=== PATIENT | female | born 1970 | race Hispanic/Latino ===

== ENCOUNTER 2017-04-25 05:42 | Day surgery (SDC) | payer BC, OTHER ==
[2017-04-25] MEDS ORDERED: NACL BACTERIOSTATIC INFILTRATI ONE (06:45)
[2017-04-25 07:10] LABS: Hematocrit 38.5 % (30.3-42.9); Hemoglobin 13.1 gm/dl (10.1-14.3)
--- NOTE | 2017-04-25 07:26 | Anesthesia Day of Surgery ---
Anesthesia Day of Surgery - Day of Surgery Patient Examined: Yes Patient H&P Reviewed: Yes Patient is NPO: Yes
--- NOTE | 2017-04-25 07:26 | Anesthesia Consultation ---
Anesthesia Consult and Med Hx Date of service: 04/25/17 - Airway Anesthetic Teeth Evaluation: Good ROM Head & Neck: Adequate Mental/Hyoid Distance: Adequate Mallampati Class: Class I Intubation Access Assessment: Good - Pulmonary Exam CTA: Yes - Cardiac Exam Cardiac Exam: RRR - Pre-Operative Health Status ASA Pre-Surgery Classification: ASA3 Proposed Anesthetic Plan: General - Pulmonary Hx Smoking: No Hx Sleep Apnea: No (ANURADHA PRE SCREEN HIGH RISK) - Cardiovascular System Hx Hypertension: Yes (X 6 MONTHS) - Central Nervous System Hx Psychiatric Problems: Yes (depression/anxiety) - Endocrine Hx Insulin Dependent Diabetes: Yes (no meds, doesnt check sugar) Hx Hypothyroidism: Yes - Hematic Hx Anemia: Yes (HAVING WORK UP NOW WITH PCP) - Other Systems Hx Alcohol Use: No Hx Substance Use: No Hx Cancer: No Hx Obesity: Yes (BMI 36.9) - Additional Comments Anesthesia Medical History Comments: high cholest.
[2017-04-25] MEDS ORDERED: ZOFRAN ONE (07:50)
[2017-04-25] MEDS ORDERED: DIPRIVAN 10 MG/ML IV ONE (07:50)
[2017-04-25] MEDS ORDERED: REGLAN ONE (07:50)
[2017-04-25] MEDS ORDERED: SUBLIMAZE ONE (07:50)
[2017-04-25] MEDS ORDERED: XYLOCAINE MPF 2% ONE (07:50)
[2017-04-25] MEDS ORDERED: NACL 0.9% 1000 ML 1,000 ML IV SCH (08:00)
[2017-04-25] MEDS ORDERED: VERSED IV NR (08:00)
[2017-04-25] MEDS ORDERED: TRANSDERM-SCOP TD NR (08:00)
[2017-04-25] MEDS ORDERED: PEPCID IV NR (08:00)
[2017-04-25] MEDS ORDERED: ROBINUL ONE (08:13)
[2017-04-25] MEDS ORDERED: LACTATED RINGERS 1,000 ML ONE (08:45)
--- NOTE | 2017-04-25 08:58 | Short Stay Summary ---
Short Stay Documentation Date of service: 04/25/17 - History H&P: obtained from office - Allergies and Medications Current Medications: Allergies Sulfa (Sulfonamide Antibiotics) Allergy (Verified 10/21/13 14:05) Rash Home Medications Medication Instructions Recorded Confirmed Last Taken Type Aspirin [Lo-Dose Aspirin EC] 81 mg PO DAILY 04/17/17 04/25/17 04/18/17 History HYDROcodone/ACETAMINOPHEN [[place] 1 each PO PRN PRN 04/17/17 04/25/17 04/24/17 History 5-325 Tablet] Nebivolol HCl [Bystolic] 5 mg PO DAILY 04/17/17 04/25/17 04/24/17 History Venlafaxine [Effexor] 75 mg PO DAILY 04/17/17 04/25/17 04/24/17 History amLODIPine [Norvasc] 5 mg PO DAILY 04/17/17 04/25/17 04/24/17 History metFORMIN [Glucophage] 500 mg PO QDAY 04/17/17 04/25/17 04/24/17 History Active Medications Cefazolin Sodium (Ancef/Sterile Water 2 Gm/20 Ml) 2 gm IV PREOP NR Stop: 04/25/17 23:59 Famotidine (Pepcid) 20 mg IV PREOP NR Stop: 04/25/17 23:59 Last Admin: 04/25/17 08:55 Dose: 20 mg Sodium Chloride (Nacl 0.9% 1000 Ml) 1,000 mls @ 75 mls/hr IV DIRECT YAYO Last Admin: 04/25/17 08:56 Dose: 75 mls/hr Midazolam HCl (Versed) 2 mg IV PREOP NR Stop: 04/25/17 23:59 Last Admin: 04/25/17 08:55 Dose: 2 mg Scopolamine (Transderm-Scop) 1 each TD PREOP NR Stop: 04/25/17 23:59 - Brief post op/procedure progress note Date of procedure: 04/25/17 Pre-op diagnosis: rt renal stones Post-op diagnosis: same Procedure: rt eswl Anesthesia: MORAA Surgeon: MARIUSZ GORDON Estimated blood loss: none Condition: stable - Hospital course Hospital course: norc & post op info on chart - Disposition Condition at discharge: Undetermined
[2017-04-25] MEDS ORDERED: ANCEF/STERILE WATER 2 GM/20 ML IV NR (09:00)
--- NOTE | 2017-04-25 09:16 | Operative Report ---
PREOPERATIVE DIAGNOSIS: Right renal calculi. POSTOPERATIVE DIAGNOSIS: Right renal calculi. PROCEDURE: Right extracorporal shockwave lithotripsy (staged procedure). SURGEON: Shaun Feldman MD ANESTHESIA: General. ANESTHESIOLOGIST: Em Clinton MD ESTIMATED BLOOD LOSS: Minimal. FLUIDS: Crystalloid. COMPLICATIONS: No complications. INDICATIONS: This patient is a 46-year-old female with long history of stones, had lithotripsy in the past. She has persistent right renal calculi and presents now for intervention. DESCRIPTION OF PROCEDURE: The patient was taken to the operative suite, placed in a supine position. After adequate general anesthesia, she had a 6 mm stone in the renal pelvis and some small satellite peripheral stones. Extracorporal shock wave lithotripsy was administered in maximum kV of 5 and 3000 shocks. Renal pause after 200 shocks was performed. Some fragmentation could be appreciated. The patient tolerated the procedure well. She was extubated and taken to the recovery room. She will go home on [place], strain her urine, and follow up in the office. JOB# [id number] C/NTS
[2017-04-25] MEDS ORDERED: DILAUDID IV PRN (10:30)
[2017-04-25 12:22] VITALS: BP 136/74
== END 2017-04-25 11:52 | disposition home or self-care (01) ==
LOC: OR 05:42
PROVIDERS: ATTEND Urology
DX: N20.2 Calculus of kidney with calculus of ureter (principal); E78.00 Pure hypercholesterolemia, unspecified; E11.9 Type 2 diabetes mellitus without complications; E03.9 Hypothyroidism, unspecified; F41.9 Anxiety disorder, unspecified; F32.9 Major depressive disorder, single episode, unspecified; E66.9 Obesity, unspecified; Z68.36 Body mass index [BMI] 36.0-36.9, adult; Z79.82 Long term (current) use of aspirin; Z79.84 Long term (current) use of oral hypoglycemic drugs; Z79.899 Other long term (current) drug therapy; Z90.49 Acquired absence of other specified parts of digestive tract; Z88.2 Allergy status to sulfonamides; Z98.890 Other specified postprocedural states
CPT/HCPCS: 36415; 50590; 81025; 85014; 85018; J1170; J2250; J2405; J2704; J2765; J3010; J7030; J7120

== ENCOUNTER 2017-12-26 09:18 | Day surgery (SDC) | payer BC ==
[~2017-12-26 09:18] MED LIST: ANCEF/STERILE WATER 2 GM/20 ML IV NR
[2017-12-26] MEDS ORDERED: DILAUDID ONE (10:13)
[2017-12-26] MEDS ORDERED: DIPRIVAN 10 MG/ML IV ONE (10:13)
[2017-12-26] MEDS ORDERED: XYLOCAINE MPF 2% ONE (10:13)
[2017-12-26] MEDS ORDERED: NACL BACTERIOSTATIC INFILTRATI ONE (10:15)
[2017-12-26] MEDS ORDERED: TORADOL IV PRN (10:28)
[2017-12-26] MEDS ORDERED: ZOFRAN IV PRN (10:28)
--- NOTE | 2017-12-26 10:29 | Anesthesia Day of Surgery ---
Anesthesia Day of Surgery - Day of Surgery Patient Examined: Yes Patient H&P Reviewed: Yes Patient is NPO: Yes
--- NOTE | 2017-12-26 10:29 | Anesthesia Consultation ---
Anesthesia Consult and Med Hx Date of service: 12/26/17 - Airway Anesthetic Teeth Evaluation: Good ROM Head & Neck: Adequate Mental/Hyoid Distance: Adequate Mallampati Class: Class III Intubation Access Assessment: Possibly Difficult - Pulmonary Exam CTA: Yes - Cardiac Exam Cardiac Exam: RRR - Pre-Operative Health Status ASA Pre-Surgery Classification: ASA3 Proposed Anesthetic Plan: General (GA with LMA ok, HTN, DM, OBestity) - Pulmonary Hx Smoking: No Hx Sleep Apnea: No (ANURADHA PRE SCREEN HIGH RISK) - Cardiovascular System Hx Hypertension: Yes (X 1 YR) - Central Nervous System Hx Back Pain: Yes - Endocrine Hx Insulin Dependent Diabetes: Yes (no meds, doesnt check sugar) - Hematic Hx Anemia: Yes - Other Systems Hx Alcohol Use: No Hx Substance Use: No Hx Cancer: No Hx Obesity: Yes
[2017-12-26 10:42] LABS: Hematocrit 39.9 % (30.3-42.9); Hemoglobin 13.4 gm/dl (10.1-14.3)
[2017-12-26] MEDS ORDERED: TRANSDERM-SCOP TD ONE (10:59)
[2017-12-26] MEDS ORDERED: NACL 0.9% 1000 ML 1,000 ML IV SCH (11:00)
[2017-12-26] MEDS ORDERED: PEPCID IV NR (11:00)
[2017-12-26] MEDS ORDERED: VERSED IV NR (11:00)
[2017-12-26] MEDS ORDERED: ROBINUL ONE (11:30)
[2017-12-26] MEDS: DILAUDID IV PRN ×2 (12:25→12:35)
--- NOTE | 2017-12-26 13:11 | Short Stay Summary ---
Short Stay Documentation Date of service: 12/26/17 - History H&P: obtained from office - Allergies and Medications Current Medications: Allergies Sulfa (Sulfonamide Antibiotics) Allergy (Verified 10/21/13 14:05) Rash Home Medications Medication Instructions Recorded Confirmed Last Taken Type Aspirin [Lo-Dose Aspirin EC] 81 mg PO DAILY 04/17/17 12/26/17 1 Week Ago History ~12/19/17 HYDROcodone/ACETAMINOPHEN [[place] 1 each PO PRN PRN 04/17/17 12/02/17 12/25/17 History 5-325 Tablet] Nebivolol HCl [Bystolic] 10 mg PO DAILY 04/17/17 12/02/17 12/25/17 History Venlafaxine [Effexor] 75 mg PO DAILY 04/17/17 12/26/17 2 Weeks Ago History ~12/12/17 metFORMIN [Glucophage] 850 mg PO BID 04/17/17 12/02/17 12/25/17 History Amlodipine-Benazepril 5-20 mg 1 tab PO DAILY 12/02/17 12/02/17 12/25/17 History AtorvaSTATin [Lipitor] 20 mg PO QHS 12/02/17 12/02/17 12/25/17 History Potassium Citrate [Potassium 10 meq PO BID 12/02/17 12/02/17 12/25/17 History Citrate ER] Tamsulosin [Flomax] 0.4 mg PO DAILY 12/02/17 12/02/17 12/25/17 History busPIRone [Buspar] 10 mg PO BID 12/02/17 12/02/17 12/25/17 History Cefuroxime [Ceftin] 500 mg PO Q12H 5 Days #20 tablet 12/26/17 Unknown Rx Oxycodone HCl/Acetaminophen 0.5 - 1 each PO Q6HR PRN #30 tablet 12/26/17 Unknown Rx [Percocet 10-325 mg] Active Medications Cefazolin Sodium (Ancef/Sterile Water 2 Gm/20 Ml) 2 gm IV PREOP NR Stop: 12/26/17 23:59 Hydromorphone HCl (Dilaudid) 0.5 mg IV Q10MIN PRN PRN Reason: Pain , Severe (7-10) Stop: 12/26/17 18:00 Last Admin: 12/26/17 12:35 Dose: 0.5 mg Sodium Chloride (Nacl 0.9% 1000 Ml) 1,000 mls @ 100 mls/hr IV DIRECT YAYO Last Admin: 12/26/17 11:05 Dose: 100 mls/hr Midazolam HCl (Versed) 2 mg IV PREOP NR Stop: 12/26/17 23:59 Last Admin: 12/26/17 11:05 Dose: 2 mg Ondansetron HCl (Zofran) 4 mg IV ONCE PRN PRN Reason: Nausea And Vomiting - Brief post op/procedure progress note Date of procedure: 12/26/17 Pre-op diagnosis: right upj 10mm Post-op diagnosis: same Procedure: right eswl Findings: good vis frag Surgeon: ADONIS BEEBE Estimated blood loss: none Pathology: none Condition: stable - Hospital course Hospital course: or pacu home - Disposition Condition at discharge: Good Disposition: DC-01 TO HOME OR SELFCARE Short Stay Discharge Plan Activity: advance as tolerated Diet: advance as tolerated Additional Instructions: REMOVE SCOPOLAMINE PATCH FROM BEHIND EAR BY 12/29/17. FOLD PATCH TOGETHER AND DISCARD IN TRASH. WASH HAND AFTER REMOVING SCOPOLAMINE PATCH. Follow up with: ADONIS BEEBE MD [Staff Physician] - 7 Days Prescriptions: Cefuroxime [Ceftin] 500 mg PO Q12H 5 Days #20 tablet Oxycodone HCl/Acetaminophen [Percocet 10-325 mg] 0.5 - 1 each PO Q6HR PRN #30 tablet PRN Reason: Pain
[2017-12-26 16:37] VITALS: BP 121/49
--- NOTE | 2018-01-05 18:51 | Operative Report ---
PREOPERATIVE DIAGNOSIS: Right ureteropelvic junction 10 mm stone. POSTOPERATIVE DIAGNOSIS: Right ureteropelvic junction 10 mm stone. PROCEDURE: Right ureteropelvic junction and renal ESWL. FINDINGS: Good visualization and fragmentation. SURGEON: Ernst Roa MD. ESTIMATED BLOOD LOSS: None. COMPLICATIONS: None. CONDITION: Stable. IMPLANTS: None. PATHOLOGY: None. CLINICAL INDICATIONS: Counseled by Urology preoperatively RCBA, antibiotics, SCD. DESCRIPTION OF PROCEDURE: The patient was transferred to the OR suite in supine position, anesthesia. Biplanar fluoroscopy was used to target the right stone with an F2. There was a total of 2500 shocks were delivered at a maximum of 5.0 kilovolts. Intermittent repositioning done as necessary. At the end of the procedure, there was good fragmentation of the stone. JOB# [id number] ATS/NTS
== END 2017-12-26 09:19 | disposition home or self-care (01) ==
LOC: OR 09:18
PROVIDERS: ATTEND Urology
DX: N20.1 Calculus of ureter (principal); E78.00 Pure hypercholesterolemia, unspecified; F41.9 Anxiety disorder, unspecified; F32.9 Major depressive disorder, single episode, unspecified; I10 Essential (primary) hypertension; E11.9 Type 2 diabetes mellitus without complications; K21.9 Gastro-esophageal reflux disease without esophagitis; E66.9 Obesity, unspecified; Z68.37 Body mass index [BMI] 37.0-37.9, adult; Z79.82 Long term (current) use of aspirin; Z79.84 Long term (current) use of oral hypoglycemic drugs; Z88.2 Allergy status to sulfonamides; Z98.51 Tubal ligation status; Z90.49 Acquired absence of other specified parts of digestive tract; Z98.890 Other specified postprocedural states
CPT/HCPCS: 36415; 50590; 81025; 82962; 84132; 85014; 85018; J0690; J1170; J1885; J2250; J2405; J2704; J7030

== ENCOUNTER 2018-09-11 05:52 | Day surgery (SDC) | payer BC ==
[2018-09-11] MEDS ORDERED: NACL BACTERIOSTATIC INFILTRATI ONE (06:44)
[2018-09-11] MEDS ORDERED: LACTATED RINGERS 1,000 ML IV SCH (07:00)
[2018-09-11] MEDS ORDERED: TRANSDERM-SCOP TD ONE (07:21)
--- NOTE | 2018-09-11 07:40 | Anesthesia Consultation ---
Anesthesia Consult and Med Hx Date of service: 09/11/18 - Airway Anesthetic Teeth Evaluation: Good ROM Head & Neck: Adequate Mental/Hyoid Distance: Adequate Mallampati Class: Class III Intubation Access Assessment: Probably Good - Pulmonary Exam CTA: Yes - Cardiac Exam Cardiac Exam: RRR - Pre-Operative Health Status ASA Pre-Surgery Classification: ASA3 Proposed Anesthetic Plan: General - Pulmonary Hx Smoking: No Hx Respiratory Symptoms: No Hx Sleep Apnea: No (ANURADHA PRE SCREEN HIGH RISK) - Cardiovascular System Hx Hypertension: Yes (X 1 YR; took amlodipine this morning ) Hx Coronary Artery Disease: No Hx Cardia Arrhythmia: No Hx Peripheral Vascular Disease: No - Central Nervous System Hx Neuromuscular Disorder: No Hx Back Pain: Yes Hx Psychiatric Problems: No - Gastrointestinal Hx Gastroesophageal Reflux Disease: No - Endocrine Hx Renal Disease: No (kidney stones) Hx Insulin Dependent Diabetes: Yes (no meds, doesnt check sugar; FBS 179 g/dl this morning) Hx Thyroid Disease: No - Hematic Hx Anemia: Yes (NOT RECENT) - Other Systems Hx Alcohol Use: No Hx Substance Use: No Hx Cancer: No Hx Obesity: Yes (BMI 48.8) - Additional Comments Anesthesia Medical History Comments: Reports nausea this morning, no vomiting; ordered zofran and scopolamine patch; no GAC, no FHAC
--- NOTE | 2018-09-11 07:41 | Anesthesia Day of Surgery ---
Anesthesia Day of Surgery - Day of Surgery Patient Examined: Yes Patient H&P Reviewed: Yes Patient is NPO: Yes Beta Blockers: No (n/a ) Cardiac Clearance: No (n/a) Pulmonary Clearance: No (n/a)
[2018-09-11] MEDS ORDERED: SUBLIMAZE IV PRN (08:17)
[2018-09-11] MEDS ORDERED: NARCAN 0.4 MG/1 ML IV PRN (08:17)
[2018-09-11] MEDS ORDERED: DEMEROL IV PRN (08:17)
[2018-09-11] MEDS ORDERED: ZOFRAN IV PRN (08:17)
[2018-09-11] MEDS ORDERED: DILAUDID IV PRN (08:17)
[2018-09-11] MEDS ORDERED: DILAUDID ONE (08:18)
[2018-09-11] MEDS ORDERED: XYLOCAINE MPF 2% ONE (08:18)
[2018-09-11] MEDS ORDERED: DIPRIVAN 10 MG/ML IV ONE (08:18)
[2018-09-11] MEDS ORDERED: TORADOL ONE (09:37)
[2018-09-11] MEDS ORDERED: ZOFRAN ONE (09:37)
--- NOTE | 2018-09-11 09:40 | Short Stay Summary ---
Short Stay Documentation Date of service: 09/11/18 - History H&P: obtained from office - Allergies and Medications Current Medications: Allergies Sulfa (Sulfonamide Antibiotics) Allergy (Verified 10/21/13 14:05) Rash Home Medications Medication Instructions Recorded Confirmed Last Taken Type Aspirin [Lo-Dose Aspirin EC] 81 mg PO DAILY 04/17/17 09/01/18 1 Month Ago History ~04/22/18 HYDROcodone/ACETAMINOPHEN [[place] 1 each PO PRN PRN 04/17/17 09/01/18 05/21/18 History 5-325 Tablet] Nebivolol HCl [Bystolic] 10 mg PO DAILY 04/17/17 09/01/18 05/21/18 History Venlafaxine [Effexor] 75 mg PO DAILY 04/17/17 09/01/18 05/21/18 History metFORMIN [Glucophage] 850 mg PO BID 04/17/17 09/01/18 05/21/18 History Amlodipine-Benazepril 5-20 mg 1 tab PO DAILY 12/02/17 09/01/18 05/21/18 History AtorvaSTATin [Lipitor] 20 mg PO QHS 12/02/17 09/01/18 05/21/18 History Potassium Citrate [Potassium 10 meq PO BID 12/02/17 09/01/18 05/21/18 History Citrate ER] busPIRone [Buspar] 10 mg PO BID 12/02/17 09/01/18 05/21/18 History Nitrofurantoin [place]/M-Cryst 100 mg PO Q12HR #14 capsule 05/22/18 09/01/18 Unknown Rx [Macrobid CAP] Active Medications Cefazolin Sodium (Ancef/Sterile Water 2 Gm/20 Ml) 2 gm IV PREOP NR Stop: 09/11/18 23:59 Fentanyl (Sublimaze) 50 mcg IV Q5MIN PRN PRN Reason: Pain , Severe (7-10) Stop: 09/11/18 20:00 Hydromorphone HCl (Dilaudid) 0.5 mg IV Q10MIN PRN PRN Reason: Pain , Severe (7-10) Stop: 09/11/18 20:00 Lactated Ringer's (Lactated Ringers) 1,000 mls @ 100 mls/hr IV DIRECT YAYO Last Admin: 09/11/18 07:00 Dose: 100 mls/hr Documented by: Meperidine HCl (Demerol) 25 mg IV ONCE PRN PRN Reason: Shivering Stop: 09/11/18 13:00 Naloxone HCl (Narcan 0.4 Mg/1 Ml) 0.1 mg IV Q2MIN PRN PRN Reason: Res Rate </= 8 or 02 SAT < 92% Ondansetron HCl (Zofran) 4 mg IV ONCE PRN PRN Reason: Nausea And Vomiting - Brief post op/procedure progress note Date of procedure: 09/11/18 Pre-op diagnosis: rt kidney stones Post-op diagnosis: same Procedure: ESWL Anesthesia: GETA Surgeon: MARIUSZ GORDON Estimated blood loss: minimal Condition: stable - Hospital course Hospital course: cynthia greco, post op info on chart - Disposition Condition at discharge: Stable Disposition: DC-01 TO HOME OR SELFCARE Short Stay Discharge Plan Follow up with: LEANN PEÑA FNP-C [Primary Care Provider] - 7 Days
[2018-09-11] MEDS ORDERED: NORCO 5/325 PO PRN (10:33)
--- NOTE | 2018-09-11 10:41 | Post Anesthesia Evaluation ---
- Post Anesthesia Evaluation Patient Participated: Yes Airway Patent: Yes Stable Respiratory Function: Yes Nausea/Vomiting: No Temp > 96.8F: Yes Pain Manageable: Yes Adequeate Hydration: Yes Anesthesia Complications: No
--- NOTE | 2018-09-11 11:19 | Operative Report ---
PREOPERATIVE DIAGNOSIS: Bilateral renal calculi. POSTOPERATIVE DIAGNOSIS: Bilateral renal calculi. PROCEDURE: Right extracorporal shock wave lithotripsy. SURGEON: Shaun Feldman MD ANESTHESIA: General. ESTIMATED BLOOD LOSS: Minimal. FLUIDS: Crystalloid. COMPLICATIONS: No complications. INDICATIONS: This 48-year-old female known to our service with long history of kidney stones. She has bilateral stones with right-sided pain. We discussed options. She agreed to proceed with surgical intervention. DESCRIPTION OF PROCEDURE: The patient was taken to the operative suite, placed in a supine position, after adequate general anesthesia. She has two stones in the mid upper pole, 5 mm each. Extracorporal shock wave lithotripsy was administered to both stones, kV of 7, 1500 shocks to each stone with a renal pause of 5 minutes after 200 shocks. Adequate fragmentation could be appreciated. The patient tolerated the procedure well. She was extubated and taken to recovery room in stable condition. She will go home on [place] and follow up in the office. JOB# [id number] LORENZA/EMANUEL
[2018-09-11 11:47] VITALS: BP 114/61
== END 2018-09-11 11:20 | disposition home or self-care (01) ==
LOC: OR 05:52
PROVIDERS: ATTEND Urology
DX: N20.0 Calculus of kidney (principal); E78.00 Pure hypercholesterolemia, unspecified; I10 Essential (primary) hypertension; E11.9 Type 2 diabetes mellitus without complications; F32.9 Major depressive disorder, single episode, unspecified; F41.9 Anxiety disorder, unspecified; E66.9 Obesity, unspecified; Z68.42 Body mass index [BMI] 45.0-49.9, adult; Z88.2 Allergy status to sulfonamides; Z79.82 Long term (current) use of aspirin; Z79.899 Other long term (current) drug therapy; Z79.84 Long term (current) use of oral hypoglycemic drugs; Z90.49 Acquired absence of other specified parts of digestive tract; Z98.51 Tubal ligation status; Z98.890 Other specified postprocedural states; Z87.440 Personal history of urinary (tract) infections; Z86.2 Personal history of diseases of the blood and blood-forming organs and certain disorders involving the immune mechanism
CPT/HCPCS: 50590; 81025; 82962; J0690; J1170; J1885; J2175; J2405; J2704; J7120

== ENCOUNTER 2018-11-06 06:04 | Day surgery (SDC) | payer BC ==
[~2018-11-06 06:04] MED LIST changes: +LACTATED RINGERS 1,000 ML IV SCH
[2018-11-06] MEDS ORDERED: NACL BACTERIOSTATIC INFILTRATI ONE (06:32)
[2018-11-06] MEDS ORDERED: TRANSDERM-SCOP TD ONE (06:47)
[2018-11-06] MEDS ORDERED: ZOFRAN ONE ×3 (06:47→13:13)
[2018-11-06] MEDS ORDERED: TRANSDERM-SCOP TD NR (07:00)
[2018-11-06] MEDS ORDERED: ZOFRAN IV NR (07:00)
[2018-11-06 07:32] VITALS: BP 136/72
[2018-11-06] MEDS ORDERED: DECADRON ONE (07:37)
[2018-11-06] MEDS ORDERED: SUBLIMAZE IV PRN (07:37)
[2018-11-06] MEDS ORDERED: DIPRIVAN 10 MG/ML IV ONE (07:37)
[2018-11-06] MEDS ORDERED: SUBLIMAZE ONE (07:37)
--- NOTE | 2018-11-06 07:37 | Anesthesia Day of Surgery ---
Anesthesia Day of Surgery - Day of Surgery Patient Examined: Yes Patient H&P Reviewed: Yes Patient is NPO: Yes
--- NOTE | 2018-11-06 07:37 | Anesthesia Consultation ---
Anesthesia Consult and Med Hx Date of service: 11/06/18 - Airway Anesthetic Teeth Evaluation: Good ROM Head & Neck: Adequate Mental/Hyoid Distance: Adequate Mallampati Class: Class II Intubation Access Assessment: Probably Good (previous easy LMA 3 or 4) - Pulmonary Exam CTA: Yes - Cardiac Exam Cardiac Exam: RRR - Pre-Operative Health Status ASA Pre-Surgery Classification: ASA3 Proposed Anesthetic Plan: General - Pulmonary Hx Smoking: No Hx Respiratory Symptoms: No Hx Sleep Apnea: No (ANURADHA PRE SCREEN HIGH RISK) - Cardiovascular System Hx Hypertension: Yes (last dose antihypertensives 2 days ago) Hx Heart Attack/AMI: No Hx Cardia Arrhythmia: No - Central Nervous System CVA: No Hx Back Pain: Yes Hx Psychiatric Problems: No - Gastrointestinal Hx Gastroesophageal Reflux Disease: Yes (controlled) - Endocrine Hx Renal Disease: No Hx Liver Disease: No Hx Non-Insulin Dependent Diabetes: Yes Hx Thyroid Disease: No - Other Systems Hx Alcohol Use: No Hx Substance Use: No Hx Cancer: No Hx Obesity: Yes (BMI 48.8)
[2018-11-06] MEDS ORDERED: NEO SYNEPHRINE ONE (13:13)
== END 2018-11-06 06:05 | disposition home or self-care (01) ==
LOC: OR 06:04
PROVIDERS: ATTEND Urology
DX: N20.0 Calculus of kidney (principal); E78.00 Pure hypercholesterolemia, unspecified; I10 Essential (primary) hypertension; E66.9 Obesity, unspecified; K21.9 Gastro-esophageal reflux disease without esophagitis; E11.9 Type 2 diabetes mellitus without complications; F32.9 Major depressive disorder, single episode, unspecified; F41.9 Anxiety disorder, unspecified; Z53.8 Procedure and treatment not carried out for other reasons; Z79.899 Other long term (current) drug therapy; Z79.84 Long term (current) use of oral hypoglycemic drugs; Z79.82 Long term (current) use of aspirin; Z88.2 Allergy status to sulfonamides; Z90.49 Acquired absence of other specified parts of digestive tract; Z68.42 Body mass index [BMI] 45.0-49.9, adult; Z98.51 Tubal ligation status; Z87.440 Personal history of urinary (tract) infections; Z98.890 Other specified postprocedural states; Z86.2 Personal history of diseases of the blood and blood-forming organs and certain disorders involving the immune mechanism
CPT/HCPCS: 82803; 82962; J1100; J2405; J3010; J7120; J0690; J2370; J2704

== ENCOUNTER 2018-12-04 06:06 | Day surgery (SDC) | payer BC ==
[~2018-12-04 06:06] MED LIST changes: -LACTATED RINGERS 1,000 ML IV SCH
[2018-12-04] MEDS ORDERED: NACL BACTERIOSTATIC INFILTRATI ONE (06:36)
[2018-12-04] MEDS ORDERED: VERSED IV ONE (06:52)
[2018-12-04] MEDS ORDERED: TRANSDERM-SCOP TD NR ×2 (07:00→08:00)
[2018-12-04] MEDS ORDERED: PEPCID IV NR ×2 (07:00→08:00)
[2018-12-04] MEDS ORDERED: LACTATED RINGERS 1,000 ML IV SCH (07:00)
[2018-12-04] MEDS ORDERED: ZOFRAN IV NR (07:00)
--- NOTE | 2018-12-04 07:12 | Anesthesia Day of Surgery ---
Anesthesia Day of Surgery - Day of Surgery Patient Examined: Yes Patient H&P Reviewed: Yes Patient is NPO: Yes Beta Blockers: No (Two nights ago)
--- NOTE | 2018-12-04 07:15 | Anesthesia Consultation ---
Anesthesia Consult and Med Hx Date of service: 12/04/18 - Airway Anesthetic Teeth Evaluation: Chipped ROM Head & Neck: Adequate Mental/Hyoid Distance: Adequate Mallampati Class: Class II Intubation Access Assessment: Good - Pre-Operative Health Status ASA Pre-Surgery Classification: ASA3 Proposed Anesthetic Plan: General, MAC - Pulmonary Hx Smoking: No Hx Respiratory Symptoms: No Hx Sleep Apnea: No (ANURADHA PRE SCREEN HIGH RISK) - Cardiovascular System Hx Hypertension: Yes (X 1 YR. Can climb two flights of stairs) Hx Coronary Artery Disease: No (CATH 2017 ok per pt) Hx Heart Attack/AMI: No Hx Cardia Arrhythmia: No Hx Peripheral Vascular Disease: No - Central Nervous System Hx Neuromuscular Disorder: No CVA: No Hx Back Pain: Yes - Gastrointestinal Hx Gastroesophageal Reflux Disease: Yes (controlled) - Endocrine Hx Renal Disease: No Hx Liver Disease: No Hx Insulin Dependent Diabetes: Yes (no meds, doesnt check sugar; FBS 269 g/dl this morning) Hx Non-Insulin Dependent Diabetes: Yes Hx Thyroid Disease: No - Hematic Hx Anemia: Yes (NOT RECENT) - Other Systems Hx Alcohol Use: No Hx Substance Use: No Hx Cancer: No Hx Obesity: Yes (BMI 48.8)
[2018-12-04] MEDS: VERSED IV NR ×2 (07:22→07:54)
[2018-12-04] MEDS ORDERED: ZOFRAN IV PRN (07:30)
[2018-12-04] MEDS ORDERED: SUBLIMAZE IV PRN (07:30)
[2018-12-04] MEDS ORDERED: HumaLOG SUB-Q NR (07:30)
[2018-12-04] MEDS ORDERED: SUBLIMAZE ONE (07:35)
[2018-12-04] MEDS ORDERED: DIPRIVAN 10 MG/ML IV ONE (07:35)
[2018-12-04] MEDS ORDERED: HumuLIN R IV SCH (07:36)
[2018-12-04] MEDS ORDERED: ROBINUL ONE (08:38)
[2018-12-04] MEDS ORDERED: NEO SYNEPHRINE/NS Syringe(OR USE) IV ONE (08:38)
[2018-12-04] MEDS ORDERED: ZOFRAN ONE (08:38)
[2018-12-04] MEDS ORDERED: XYLOCAINE MPF 2% ONE (08:38)
--- NOTE | 2018-12-04 08:57 | Short Stay Summary ---
Short Stay Documentation Date of service: 12/04/18 - History H&P: obtained from office - Allergies and Medications Current Medications: Allergies Sulfa (Sulfonamide Antibiotics) Allergy (Verified 10/21/13 14:05) Rash Home Medications Medication Instructions Recorded Confirmed Last Taken Type Aspirin [Lo-Dose Aspirin EC] 81 mg PO DAILY 04/17/17 11/25/18 09/07/18 History HYDROcodone/ACETAMINOPHEN [[place] 1 each PO PRN PRN 04/17/17 11/25/18 11/05/18 History 5-325 Tablet] Nebivolol HCl [Bystolic] 10 mg PO DAILY 04/17/17 11/25/18 11/04/18 History Venlafaxine [Effexor] 75 mg PO DAILY 04/17/17 11/25/18 11/04/18 History metFORMIN [Glucophage] 850 mg PO BID 04/17/17 11/25/18 11/05/18 History Amlodipine-Benazepril 5-20 mg 1 tab PO DAILY 12/02/17 11/25/18 11/04/18 History AtorvaSTATin [Lipitor] 20 mg PO QHS 12/02/17 11/25/18 11/04/18 History Potassium Citrate [Potassium 10 meq PO BID 12/02/17 11/25/18 11/04/18 History Citrate ER] busPIRone [Buspar] 10 mg PO BID 12/02/17 11/25/18 11/04/18 History Gemfibrozil [Lopid] 1 tab PO QDAY 11/06/18 11/25/18 11/04/18 History Active Medications Cefazolin Sodium (Ancef/Sterile Water 2 Gm/20 Ml) 2 gm IV PREOP NR Stop: 12/04/18 23:59 Famotidine (Pepcid) 20 mg IV PREOP NR Stop: 12/04/18 10:00 Last Admin: 12/04/18 07:30 Dose: 20 mg Documented by: Fentanyl (Sublimaze) 50 mcg IV Q5MIN PRN PRN Reason: Pain , Severe (7-10) Stop: 12/04/18 17:00 Lactated Ringer's (Lactated Ringers) 1,000 mls @ 100 mls/hr IV DIRECT YAYO Last Admin: 12/04/18 07:20 Dose: 100 mls/hr Documented by: Insulin Human Regular (Humulin R) 4 units IV ONCE YAYO Stop: 12/04/18 12:00 Last Admin: 12/04/18 07:40 Dose: 4 units Documented by: Midazolam HCl (Versed) 2 mg IV ONCE NR Stop: 12/04/18 10:00 Last Admin: 12/04/18 07:54 Dose: 2 mg Documented by: Scopolamine (Transderm-Scop) 1 each TD PREOP NR Stop: 12/04/18 16:00 Last Admin: 12/04/18 07:20 Dose: 1 each Documented by: - Brief post op/procedure progress note Date of procedure: 12/04/18 Pre-op diagnosis: left renal stone Post-op diagnosis: same Procedure: left eswl Anesthesia: MORAA Surgeon: MARIUSZ GORDON Estimated blood loss: minimal Pathology: none Condition: stable - Hospital course Hospital course: norco & post op info on chart - Disposition Condition at discharge: Stable Disposition: DC-01 TO HOME OR SELFCARE Short Stay Discharge Plan Follow up with: LEANN PEÑA FNP-C [Primary Care Provider] - 7 Days
--- NOTE | 2018-12-04 09:07 | Operative Report ---
PREOPERATIVE DIAGNOSIS: Left renal stone, 10 mm. POSTOPERATIVE DIAGNOSIS: Left renal stone, 10 mm. PROCEDURE: Left extracorporal shock wave lithotripsy. SURGEON: Shaun Feldman M.D. ANESTHESIA: General. ESTIMATED BLOOD LOSS: Minimal. FLUIDS: Crystalloid. COMPLICATIONS: No complications. INDICATIONS: This patient is a 48-year-old female with long history of kidney stones with recurrent stone on the left side. She presents now for surgical intervention. DESCRIPTION OF PROCEDURE: The patient was taken to the operative suite, placed in a supine position. After adequate general anesthesia her 10 mm stone was localized in 2 planes using fluoroscopy. Extracorporal shock wave lithotripsy was administered with a maximum kV of 7 and 2500 shocks. A 5-minute renal pause after 200 shocks was performed. Adequate fragmentation could be appreciated. She actually had two stones. Once the lithotripsy began we were able to distribute the shocks amongst the 2 fragments. She tolerated the procedure well. She was extubated and taken to recovery room in stable condition. She will go home on [place] and follow up in the office. JOB# [id number] LORENZA/NTS
[2018-12-04] MEDS ORDERED: NORCO 5/325 PO PRN (10:00)
[2018-12-04 10:39] VITALS: BP 112/50
== END 2018-12-04 10:05 | disposition home or self-care (01) ==
LOC: OR 06:06
PROVIDERS: ATTEND Urology
DX: N20.0 Calculus of kidney (principal); I25.10 Atherosclerotic heart disease of native coronary artery without angina pectoris; E78.00 Pure hypercholesterolemia, unspecified; I10 Essential (primary) hypertension; K21.9 Gastro-esophageal reflux disease without esophagitis; E11.9 Type 2 diabetes mellitus without complications; F32.9 Major depressive disorder, single episode, unspecified; F41.9 Anxiety disorder, unspecified; Z88.2 Allergy status to sulfonamides; Z79.82 Long term (current) use of aspirin; Z79.84 Long term (current) use of oral hypoglycemic drugs; Z79.899 Other long term (current) drug therapy; Z90.49 Acquired absence of other specified parts of digestive tract; Z68.42 Body mass index [BMI] 45.0-49.9, adult; Z98.51 Tubal ligation status; Z87.440 Personal history of urinary (tract) infections; Z98.890 Other specified postprocedural states; Z86.2 Personal history of diseases of the blood and blood-forming organs and certain disorders involving the immune mechanism
CPT/HCPCS: 50590; 82962; J0690; J2250; J2370; J2405; J2704; J3010; J7120; J1815